=== PATIENT | male | born 1960 | race Caucasian/White ===

== ENCOUNTER 2020-07-31 22:18 | Observation (INO) | payer BC ==
[2020-07-31] MEDS ORDERED: Sodium Chloride 0.9% 10 ML Syringe FLUSH PRN (22:26)
[2020-07-31] MEDS ORDERED: Morphine 4 MG/ML VIAL IVPUSH ONE (22:27)
[2020-07-31] MEDS ORDERED: Ondansetron 4 MG/2 ML SDV IVPUSH ONE (22:27)
[2020-07-31] MEDS ORDERED: Sodium Chloride 0.9% 1,000 ML IV SCH (22:30)
[2020-07-31] MEDS ORDERED: Ondansetron 4 MG Tab.DIS PO ONE (22:43)
[2020-07-31] MEDS ORDERED: Alum Hydroxide/Mag Hydroxide 15 ML, Lidocaine 2% 15 ML PO ONE ×2 (22:43)
[2020-07-31] MEDS ORDERED: Iopamidol 755 Mg/ML 100 ML Bottle IV ONE (23:20)
--- NOTE | 2020-07-31 23:21 | EDM.PDOC ---
ED HPI GENERAL MEDICAL PROBLEM - General Chief Complaint: Abdominal Pain Stated Complaint: ABDOMINAL PAIN Time Seen by Provider: 07/31/20 23:00 Source of Information: Reports: Patient History Limitations: Reports: No Limitations - History of Present Illness INITIAL COMMENTS - FREE TEXT/NARRATIVE: Patient presented to the ED because of abdominal pain which started at about 1500. The pain is sharp and squeezing over the LUQ and epigastric area. There is associated nausea but no vomiting, no diarrhea or constipation. He denies having any cough/cold, fever/chills. Left Upper Abdomen Pain Score (Numeric/FACES): 8 Lower Abdomen Pain Score (Numeric/FACES): 1 - Related Data Allergies Allergy/AdvReac Type Severity Reaction Status Date / Time No Known Allergies Allergy Verified 08/01/20 00:21 Home Meds: Home Meds Acetaminophen/Codeine [Tylenol with Codeine No.3 300MG/30MG] 1 - 2 tab PO Q4H PRN #12 tab 08/02/20 [Rx] Metoclopramide [Reglan] 5 mg PO TIDAC PRN #21 tablet 08/02/20 [Rx] Pantoprazole [ProTONIX] 40 mg PO 0600 #30 tab.cr 08/02/20 [Rx] ED ROS GENERAL - Review of Systems Review Of Systems: See Below Constitutional: Reports: No Symptoms HEENT: Reports: No Symptoms Respiratory: Reports: No Symptoms Cardiovascular: Reports: No Symptoms Endocrine: Reports: No Symptoms GI/Abdominal: Reports: Abdominal Pain, Nausea. Denies: Vomiting : Reports: No Symptoms Musculoskeletal: Reports: No Symptoms Skin: Reports: No Symptoms Neurological: Reports: No Symptoms Psychiatric: Reports: No Symptoms ED EXAM, GI/ABD - Physical Exam Exam: See Below Exam Limited By: No Limitations General Appearance: Alert, No Apparent Distress Ears: Normal External Exam, Normal Canal Nose: Normal Inspection, Normal Mucosa Throat/Mouth: Normal Inspection, Normal Lips, Normal Teeth Head: Atraumatic, Normocephalic Neck: Normal Inspection, Supple, Non-Tender, Full Range of Motion Respiratory/Chest: No Respiratory Distress, Lungs Clear, Normal Breath Sounds Cardiovascular: Normal Peripheral Pulses, Regular Rate, Rhythm, No Edema, No Gallop GI/Abdominal Exam: Normal Bowel Sounds, No Organomegaly, No Distention, Other (tenderness over the epigastric area and LUQ) Back Exam: Normal Inspection, Full Range of Motion Extremities: Normal Inspection Neurological: Alert, Oriented, CN II-XII Intact, Normal Cognition Psychiatric: Normal Affect, Normal Mood Skin Exam: Warm, Dry Course - Vital Signs Text/Narrative:: Labs/CXR/CT-abd/pelvis result was discussed with patient NS 1 L bolus Zofran 4 mg IV Morphine 4 mg IV x1 GI cocktail Zofran ODT 4 mg Zosyn 4.5 GM IV x1 Vancomycin 1.5 gm IV x1 Last Recorded V/S: Last Vital Signs Temp 36.6 C 08/02/20 11:35 Pulse 96 08/02/20 16:00 Resp 16 08/02/20 16:00 BP 117/78 08/02/20 16:00 Pulse Ox 96 08/02/20 16:00 - Orders/Labs/Meds Labs: Laboratory Tests 07/31/20 07/31/20 07/31/20 Range/Units 22:37 22:37 22:37 WBC 20.9 H (4.5-12.0) X10-3/uL RBC 2.59 L (4.30-5.75) x10(6)uL Hgb 9.5 L (13.5-17.8) g/dL Hct 28.1 L (30.0-51.3) % MCV 108.5 H (80-96) fL MCH 36.5 H (27.7-33.6) pg MCHC 33.7 (32.2-35.4) g/dL RDW 18.7 H (11.5-15.5) % Plt Count 342 (125-369) X10(3)uL MPV 8.3 (7.4-10.4) fL Add Manual Diff Yes Neutrophils % (Manual) 80 (46-82) % Band Neutrophils % 4 (0-6) % Lymphocytes % (Manual) 12 L (13-37) % Monocytes % (Manual) 4 (4-12) % Sodium 138 (135-145) mmol/L Potassium 3.7 (3.5-5.3) mmol/L Chloride 100 (100-110) mmol/L Carbon Dioxide 23 (21-32) mmol/L BUN 17 (7-18) mg/dL Creatinine 1.2 (0.70-1.30) mg/dL Est Cr Clr Drug Dosing TNP Estimated GFR (MDRD) > 60 (>60) BUN/Creatinine Ratio 14.2 (9-20) Glucose 220 H (80-116) mg/dL Hemoglobin A1c (<5.7) % Lactic Acid (0.4-2.0) mmol/L Calcium 9.3 (8.6-10.2) mg/dL Total Bilirubin 0.5 (0.1-1.3) mg/dL AST 12 (5-25) IU/L ALT 23 (12-36) U/L Alkaline Phosphatase 45 L (56-112) IU/L Troponin I (4.0-60.3) pg/mL Total Protein 7.7 (6.0-8.0) g/dL Albumin 4.1 (3.5-5.2) g/dL Globulin 3.6 g/dL Albumin/Globulin Ratio 1.1 Triglycerides (15-150) mg/dL Cholesterol (50-200) mg/dL LDL Cholesterol Direct (60-130) mg/dL HDL Cholesterol (40-75) mg/dL Cholesterol/HDL Ratio (0-5) Amylase 26 (25-115) U/L Lipase 42 L (73-393) U/L Urine Color (YELLOW) Urine Appearance (CLEAR) Urine pH (5.0-6.5) Ur Specific [place] (1.010-1.025) Urine Protein (NEGATIVE) mg/dL Urine Glucose (UA) (NORMAL) mg/dL Urine Ketones (NEGATIVE) mg/dL Urine Occult Blood (NEGATIVE) Urine Nitrite (NEGATIVE) Urine Bilirubin (NEGATIVE) Urine Urobilinogen (NEGATIVE) mg/dL Ur Leukocyte Esterase (NEGATIVE) Urine RBC (0-5) Urine WBC (0-5) Ur Squamous Epith Cells (NS,R,O) Urine Bacteria (NS) 07/31/20 07/31/20 08/01/20 Range/Units 22:37 23:27 01:35 WBC (4.5-12.0) X10-3/uL RBC (4.30-5.75) x10(6)uL Hgb (13.5-17.8) g/dL Hct (30.0-51.3) % MCV (80-96) fL MCH (27.7-33.6) pg MCHC (32.2-35.4) g/dL RDW (11.5-15.5) % Plt Count (125-369) X10(3)uL MPV (7.4-10.4) fL Add Manual Diff Neutrophils % (Manual) (46-82) % Band Neutrophils % (0-6) % Lymphocytes % (Manual) (13-37) % Monocytes % (Manual) (4-12) % Sodium (135-145) mmol/L Potassium (3.5-5.3) mmol/L Chloride (100-110) mmol/L Carbon Dioxide (21-32) mmol/L BUN (7-18) mg/dL Creatinine (0.70-1.30) mg/dL Est Cr Clr Drug Dosing Estimated GFR (MDRD) (>60) BUN/Creatinine Ratio (9-20) Glucose (80-116) mg/dL Hemoglobin A1c (<5.7) % Lactic Acid 4.2 H* 3.2 H* (0.4-2.0) mmol/L Calcium (8.6-10.2) mg/dL Total Bilirubin (0.1-1.3) mg/dL AST (5-25) IU/L ALT (12-36) U/L Alkaline Phosphatase (56-112) IU/L Troponin I (4.0-60.3) pg/mL Total Protein (6.0-8.0) g/dL Albumin (3.5-5.2) g/dL Globulin g/dL Albumin/Globulin Ratio Triglycerides (15-150) mg/dL Cholesterol (50-200) mg/dL LDL Cholesterol Direct (60-130) mg/dL HDL Cholesterol (40-75) mg/dL Cholesterol/HDL Ratio (0-5) Amylase (25-115) U/L Lipase (73-393) U/L Urine Color Yellow (YELLOW) Urine Appearance Slightly cloudy (CLEAR) Urine pH 5.0 (5.0-6.5) Ur Specific [place] 1.030 H (1.010-1.025) Urine Protein Negative (NEGATIVE) mg/dL Urine Glucose (UA) >1000 H (NORMAL) mg/dL Urine Ketones Negative (NEGATIVE) mg/dL Urine Occult Blood Large H (NEGATIVE) Urine Nitrite Negative (NEGATIVE) Urine Bilirubin Negative (NEGATIVE) Urine Urobilinogen Normal (NEGATIVE) mg/dL Ur Leukocyte Esterase Negative (NEGATIVE) Urine RBC 5-10 H (0-5) Urine WBC 0-5 (0-5) Ur Squamous Epith Cells Occasional (NS,R,O) Urine Bacteria Few H (NS) 08/01/20 08/01/20 08/01/20 Range/Units 01:35 01:35 01:35 WBC 15.2 H (4.5-12.0) X10-3/uL RBC 2.54 L (4.30-5.75) x10(6)uL Hgb 9.2 L (13.5-17.8) g/dL Hct 27.8 L (30.0-51.3) % MCV 109.6 H (80-96) fL MCH 36.1 H (27.7-33.6) pg MCHC 32.9 (32.2-35.4) g/dL RDW 19.3 H (11.5-15.5) % Plt Count 318 (125-369) X10(3)uL MPV 8.3 (7.4-10.4) fL Add Manual Diff Yes Neutrophils % (Manual) 84 H (46-82) % Band Neutrophils % 3 (0-6) % Lymphocytes % (Manual) 9 L (13-37) % Monocytes % (Manual) 4 (4-12) % Sodium (135-145) mmol/L Potassium (3.5-5.3) mmol/L Chloride (100-110) mmol/L Carbon Dioxide (21-32) mmol/L BUN (7-18) mg/dL Creatinine (0.70-1.30) mg/dL Est Cr Clr Drug Dosing Estimated GFR (MDRD) (>60) BUN/Creatinine Ratio (9-20) Glucose (80-116) mg/dL Hemoglobin A1c (<5.7) % Lactic Acid (0.4-2.0) mmol/L Calcium (8.6-10.2) mg/dL Total Bilirubin (0.1-1.3) mg/dL AST (5-25) IU/L ALT (12-36) U/L Alkaline Phosphatase (56-112) IU/L Troponin I (4.0-60.3) pg/mL Total Protein (6.0-8.0) g/dL Albumin (3.5-5.2) g/dL Globulin g/dL Albumin/Globulin Ratio Triglycerides 76 (15-150) mg/dL Cholesterol 179 (50-200) mg/dL LDL Cholesterol Direct 112 (60-130) mg/dL HDL Cholesterol 39 L (40-75) mg/dL Cholesterol/HDL Ratio 4.6 (0-5) Amylase (25-115) U/L Lipase 41 L (73-393) U/L Urine Color (YELLOW) Urine Appearance (CLEAR) Urine pH (5.0-6.5) Ur Specific [place] (1.010-1.025) Urine Protein (NEGATIVE) mg/dL Urine Glucose (UA) (NORMAL) mg/dL Urine Ketones (NEGATIVE) mg/dL Urine Occult Blood (NEGATIVE) Urine Nitrite (NEGATIVE) Urine Bilirubin (NEGATIVE) Urine Urobilinogen (NEGATIVE) mg/dL Ur Leukocyte Esterase (NEGATIVE) Urine RBC (0-5) Urine WBC (0-5) Ur Squamous Epith Cells (NS,R,O) Urine Bacteria (NS) 08/01/20 08/01/20 Range/Units 01:35 01:35 WBC (4.5-12.0) X10-3/uL RBC (4.30-5.75) x10(6)uL Hgb (13.5-17.8) g/dL Hct (30.0-51.3) % MCV (80-96) fL MCH (27.7-33.6) pg MCHC (32.2-35.4) g/dL RDW (11.5-15.5) % Plt Count (125-369) X10(3)uL MPV (7.4-10.4) fL Add Manual Diff Neutrophils % (Manual) (46-82) % Band Neutrophils % (0-6) % Lymphocytes % (Manual) (13-37) % Monocytes % (Manual) (4-12) % Sodium (135-145) mmol/L Potassium (3.5-5.3) mmol/L Chloride (100-110) mmol/L Carbon Dioxide (21-32) mmol/L BUN (7-18) mg/dL Creatinine (0.70-1.30) mg/dL Est Cr Clr Drug Dosing Estimated GFR (MDRD) (>60) BUN/Creatinine Ratio (9-20) Glucose (80-116) mg/dL Hemoglobin A1c 5.5 (<5.7) % Lactic Acid (0.4-2.0) mmol/L Calcium (8.6-10.2) mg/dL Total Bilirubin (0.1-1.3) mg/dL AST (5-25) IU/L ALT (12-36) U/L Alkaline Phosphatase (56-112) IU/L Troponin I 16.3 (4.0-60.3) pg/mL Total Protein (6.0-8.0) g/dL Albumin (3.5-5.2) g/dL Globulin g/dL Albumin/Globulin Ratio Triglycerides (15-150) mg/dL Cholesterol (50-200) mg/dL LDL Cholesterol Direct (60-130) mg/dL HDL Cholesterol (40-75) mg/dL Cholesterol/HDL Ratio (0-5) Amylase (25-115) U/L Lipase (73-393) U/L Urine Color (YELLOW) Urine Appearance (CLEAR) Urine pH (5.0-6.5) Ur Specific [place] (1.010-1.025) Urine Protein (NEGATIVE) mg/dL Urine Glucose (UA) (NORMAL) mg/dL Urine Ketones (NEGATIVE) mg/dL Urine Occult Blood (NEGATIVE) Urine Nitrite (NEGATIVE) Urine Bilirubin (NEGATIVE) Urine Urobilinogen (NEGATIVE) mg/dL Ur Leukocyte Esterase (NEGATIVE) Urine RBC (0-5) Urine WBC (0-5) Ur Squamous Epith Cells (NS,R,O) Urine Bacteria (NS) Meds: Medications Discontinued Medications Generic Name Dose Route Start Last Admin Trade Name Freq PRN Reason Stop Dose Admin Acetaminophen 650 mg 08/01/20 03:04 08/01/20 18:23 Tylenol PO 650 mg Q4H PRN Administration Pain (Mild 1-3)/fever Al Hydroxide/Mg Hydroxide 15 0 ml 07/31/20 22:43 07/31/20 22:51 ml/ Lidocaine HCl 15 ml PO 07/31/20 22:44 15 ml ONETIME ONE Administration Enoxaparin Sodium 40 mg 08/01/20 03:15 08/01/20 06:18 Lovenox SUBCUT 40 mg Q24H HALIMA Administration Enoxaparin Sodium 40 mg 08/02/20 08:00 Lovenox SUBCUT Q24H HALIMA Famotidine 20 mg 08/01/20 21:00 08/02/20 10:28 Pepcid PO Not Given BID HALIMA Hydromorphone HCl 1 mg 08/01/20 01:29 08/01/20 01:40 Dilaudid IVPUSH 08/01/20 01:30 1 mg ONETIME ONE Administration Hydromorphone HCl 1 mg 08/01/20 03:16 08/01/20 10:17 Dilaudid IVPUSH 1 mg Q2H PRN Administration Pain Hydromorphone HCl 2 mg 08/01/20 19:02 08/01/20 19:15 Dilaudid IVPUSH 08/01/20 19:03 2 mg ONETIME ONE Administration Sodium Chloride 1,000 mls @ 999 mls/hr 07/31/20 22:30 07/31/20 23:15 Normal Saline IV 999 mls/hr ASDIRECTED HALIMA Administration Sodium Chloride 1,000 mls @ 999 mls/hr 08/01/20 01:30 08/01/20 01:33 Normal Saline IV 999 mls/hr ASDIRECTED HALIMA Administration Piperacillin Sod/Tazobactam 100 mls @ 200 mls/hr 08/01/20 02:30 08/01/20 02:35 Sod 4.5 gm/ Sodium Chloride IV 200 mls/hr Q8H HALIMA Administration Vancomycin HCl 1,500 gm/ 250 mls @ 167 mls/hr 08/01/20 03:00 Sodium Chloride IV Q12H HALIMA Vancomycin HCl 1 gm/ 250 mls @ 150 mls/hr 08/01/20 03:00 08/01/20 03:18 Vancomycin HCl 500 mg/ Sodium IV 150 mls/hr Chloride Q12H HALIMA Administration Sodium Chloride 1,000 mls @ 125 mls/hr 08/01/20 03:00 08/01/20 03:10 Normal Saline IV 125 mls/hr ASDIRECTED HALIMA Administration Iopamidol 100 ml 07/31/20 23:20 07/31/20 23:44 Isovue-370 (76%) IV 07/31/20 23:21 100 ml . DIRECTED ONE Administration Ketorolac Tromethamine 30 mg 08/01/20 01:29 08/01/20 01:36 Toradol IVPUSH 08/01/20 01:30 30 mg ONETIME ONE Administration Metoclopramide HCl 5 mg 08/02/20 11:30 08/02/20 11:06 Reglan PO 5 mg TIDAC HALIMA Administration Morphine Sulfate 4 mg 07/31/20 22:27 07/31/20 23:19 Morphine IVPUSH 07/31/20 22:28 4 mg ONETIME ONE Administration Ondansetron HCl 4 mg 07/31/20 22:27 07/31/20 23:24 Zofran IVPUSH 07/31/20 22:28 4 mg ONETIME ONE Administration Ondansetron HCl 4 mg 07/31/20 22:43 07/31/20 22:47 Zofran Odt PO 07/31/20 22:44 4 mg ONETIME ONE Administration Ondansetron HCl 4 mg 08/01/20 03:13 08/01/20 16:37 Zofran IVPUSH 4 mg Q4H PRN Administration Nausea/Vomiting Pantoprazole Sodium 40 mg 08/01/20 07:48 08/01/20 08:17 Protonix Iv IVPUSH 08/01/20 07:49 40 mg ONETIME ONE Administration Pantoprazole Sodium 40 mg 08/02/20 11:30 08/02/20 11:06 Protonix PO 40 mg 0600 HALIMA Administration Propofol 300 mg 08/01/20 03:17 Diprivan 20 Ml IV 08/01/20 03:18 .STK-MED ONE Senna/Docusate Sodium 1 tab 08/01/20 03:12 Senna Plus PO BID PRN Constipation Sodium Chloride 10 ml 07/31/20 22:26 08/01/20 16:38 Saline Flush FLUSH 10 ml ASDIRECTED PRN Administration Keep Vein Open Departure - Departure Time of Disposition: 05:00 Disposition: Refer to Observation Condition: Good Clinical Impression: Sepsis Abdominal pain Qualifiers: Abdominal location: epigastric Qualified Code(s): R10.13 - Epigastric pain - Discharge Information
[2020-08-01] MEDS ORDERED: Ketorolac 30 MG/ML SDV IVPUSH ONE (01:29)
[2020-08-01] MEDS ORDERED: HYDROmorphone 2 MG/ML SDV IVPUSH ONE ×2 (01:29→19:02)
[2020-08-01] MEDS ORDERED: Sodium Chloride 0.9% 1,000 ML IV SCH ×2 (01:30→03:00)
[2020-08-01 02:01] LABS: HEMOGLOBIN A1C 5.5 % (<5.7)
[2020-08-01] MEDS ORDERED: Piperacillin/Tazobactam 4.5 GM in Sodium Chloride 0.9% 100 ML IV SCH (02:30)
[2020-08-01] MEDS ORDERED: Vancomycin 1 GM, Vancomycin 500 MG in Sodium Chloride 0.9% 250 ML IV SCH (03:00)
[2020-08-01] MEDS ORDERED: Vancomycin 1,500 GM in Sodium Chloride 0.9% 250 ML IV SCH (03:00)
[2020-08-01] MEDS ORDERED: Acetaminophen 325 MG Tab PO PRN (03:04)
[2020-08-01] MEDS ORDERED: Ondansetron 4 MG/2 ML SDV IVPUSH PRN (03:13)
[2020-08-01] MEDS ORDERED: Enoxaparin 40 MG/0.4 ML Syringe SUBCUT SCH (03:15)
[2020-08-01] MEDS ORDERED: Propofol 200 MG/20 ML SDV IV ONE (03:17)
[2020-08-01] MEDS ORDERED: Pantoprazole 40 MG Vial IVPUSH ONE (07:48)
[2020-08-01] MEDS: HYDROmorphone 2 MG/ML SDV IVPUSH PRN ×2 (08:10→10:17)
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
[2020-08-01] MEDS: Famotidine 20 MG Tab PO SCH (21:13)
--- NOTE | 2020-08-02 07:38 | PCM.CONS ---
H&P History of Present Illness - General Date of Service: 08/02/20 Admit Problem/Dx: Admission Diagnosis/Problem Admission Diagnosis/Problem Abdominal pain Source of Information: Patient - History of Present Illness Initial Comments - Free Text/Narative: Pt was admitted with a sudden onset of epigastric abd pain on Thursday. Notably also had an elevation in his lactic acid as well. This did resolve. He did continue to have epigastric abd pain. It is severe enough to affect ambulation. no aggravating or relieving factors. Was to go home last pm but did have another flair up. he denies any black or bloody bowel movements or emesis. Has never had an egd. Left Upper Abdomen Pain Score (Numeric/FACES): 8 Lower Abdomen Pain Score (Numeric/FACES): 1 - Related Data Allergies/Adverse Reactions: Allergies Allergy/AdvReac Type Severity Reaction Status Date / Time No Known Allergies Allergy Verified 08/01/20 00:21 Home Medications: Home Meds NK [No Known Home Meds] 08/01/20 [History] Past Medical History HEENT History: Reports: None Cardiovascular History: Reports: Other (See Below) Other Cardiovascular History: tavares has high BP. No hx of Respiratory History: Reports: None Gastrointestinal History: Reports: None Genitourinary History: Reports: None Musculoskeletal History: Reports: Other (See Below) Other Musculoskeletal History: History of broken collar bone. With surgery Neurological History: Reports: None Psychiatric History: Reports: Addiction Endocrine/Metabolic History: Reports: Obesity/BMI 30+ Hematologic History: Reports: None Oncologic (Cancer) History: Reports: Basal Cell Carcinoma, Other (See Below) Other Oncologic History: nose Dermatologic History: Reports: None - Infectious Disease History Infectious Disease History: Reports: Chicken Pox, Mumps - Past Surgical History HEENT Surgical History: Reports: None Cardiovascular Surgical History: Reports: None Respiratory Surgical History: Reports: None GI Surgical History: Reports: None Male Surgical History: Reports: None Endocrine Surgical History: Reports: None Neurological Surgical History: Reports: None Musculoskeletal Surgical History: Reports: Other (See Below) Other Musculoskeletal Surgeries/Procedures:: see above Oncologic Surgical History: Reports: None Dermatological Surgical History: Reports: Skin Biopsy, Other (See Below) Social & Family History - Family History Family Medical History: Unobtainable - Tobacco Use Smoking Status *Q: Current Every Day Smoker Years of Tobacco use: 35 Packs/Tins Daily: 1 - Caffeine Use Caffeine Use: Reports: Coffee, Tea - Alcohol Use Days Per Week of Alcohol Use: 2 Number of Drinks Per Day: 5 Total Drinks Per Week: 10 Date of Last Drink: 07/29/20 Time of Last Drink: 14:00 - Recreational Drug Use Recreational Drug Use: No H&P Review of Systems - Review of Systems: Review Of Systems: See Below General: Reports: No Symptoms Pulmonary: Reports: No Symptoms Cardiovascular: Reports: No Symptoms Gastrointestinal: Reports: Abdominal Pain, Flatus. Denies: Black Stool, Bloody Stool Musculoskeletal: Reports: No Symptoms Exam - Exam Exam: See Below - Vital Signs Vital Signs: Last Vital Signs Temp 98.8 F 08/02/20 00:00 Pulse 70 08/02/20 00:00 Resp 16 08/02/20 00:00 BP 158/83 H 08/02/20 00:00 Pulse Ox 94 L 08/02/20 00:00 Weight: 95.753 kg - Exam General: Alert, Oriented Lungs: Clear to Auscultation, Normal Respiratory Effort Cardiovascular: Regular Rate, Regular Rhythm GI/Abdominal Exam: Normal Bowel Sounds, Soft, Non-Tender - Patient Data Lab Results Last 24 hrs: Laboratory Results - last 24 hr 08/01/20 08/02/20 08/02/20 Range/Units 05:45 06:30 06:30 WBC 16.3 H (4.5-12.0) X10-3/uL RBC 2.71 L (4.30-5.75) x10(6)uL Hgb 9.9 L (13.5-17.8) g/dL Hct 29.5 L (30.0-51.3) % MCV 109.1 H (80-96) fL MCH 36.4 H (27.7-33.6) pg MCHC 33.4 (32.2-35.4) g/dL RDW 18.8 H (11.5-15.5) % Plt Count 280 (125-369) X10(3)uL MPV 8.1 (7.4-10.4) fL Add Manual Diff Yes Neutrophils % (Manual) 87 H (46-82) % Band Neutrophils % 2 (0-6) % Lymphocytes % (Manual) 7 L (13-37) % Monocytes % (Manual) 4 (4-12) % Sodium 137 (135-145) mmol/L Potassium 4.2 (3.5-5.3) mmol/L Chloride 100 (100-110) mmol/L Carbon Dioxide 29 (21-32) mmol/L BUN 7 D (7-18) mg/dL Creatinine 0.9 (0.70-1.30) mg/dL Est Cr Clr Drug Dosing 93.50 mL/min Estimated GFR (MDRD) > 60 (>60) BUN/Creatinine Ratio 7.8 L (9-20) Glucose 116 D (80-116) mg/dL Calcium 9.5 (8.6-10.2) mg/dL Total Bilirubin 0.8 (0.1-1.3) mg/dL AST 17 D (5-25) IU/L ALT 20 D (12-36) U/L Alkaline Phosphatase 50 L (56-112) IU/L C-Reactive Protein (0.5-0.9) mg/dL Total Protein 7.7 (6.0-8.0) g/dL Albumin 4.1 (3.5-5.2) g/dL Globulin 3.6 g/dL Albumin/Globulin Ratio 1.1 Amylase (25-115) U/L Lipase (73-393) U/L Vitamin B12 987 H (193-986) pg/mL 08/02/20 08/02/20 08/02/20 Range/Units 06:30 06:30 06:30 WBC (4.5-12.0) X10-3/uL RBC (4.30-5.75) x10(6)uL Hgb (13.5-17.8) g/dL Hct (30.0-51.3) % MCV (80-96) fL MCH (27.7-33.6) pg MCHC (32.2-35.4) g/dL RDW (11.5-15.5) % Plt Count (125-369) X10(3)uL MPV (7.4-10.4) fL Add Manual Diff Neutrophils % (Manual) (46-82) % Band Neutrophils % (0-6) % Lymphocytes % (Manual) (13-37) % Monocytes % (Manual) (4-12) % Sodium (135-145) mmol/L Potassium (3.5-5.3) mmol/L Chloride (100-110) mmol/L Carbon Dioxide (21-32) mmol/L BUN (7-18) mg/dL Creatinine (0.70-1.30) mg/dL Est Cr Clr Drug Dosing mL/min Estimated GFR (MDRD) (>60) BUN/Creatinine Ratio (9-20) Glucose (80-116) mg/dL Calcium (8.6-10.2) mg/dL Total Bilirubin (0.1-1.3) mg/dL AST (5-25) IU/L ALT (12-36) U/L Alkaline Phosphatase (56-112) IU/L C-Reactive Protein 2.8 H* (0.5-0.9) mg/dL Total Protein (6.0-8.0) g/dL Albumin (3.5-5.2) g/dL Globulin g/dL Albumin/Globulin Ratio Amylase 21 L (25-115) U/L Lipase 32 L (73-393) U/L Vitamin B12 (193-986) pg/mL Result Diagrams: 08/02/20 06:30 08/02/20 06:30 Roney Results Last 24 hrs: Microbiology 07/31/20 23:37 Urine Culture - Preliminary Urine, Voided NO GROWTH AFTER 1 DAY 08/01/20 00:10 Aerobic Blood Culture - Preliminary Blood - Venous NO GROWTH AFTER 1 DAY Anaerobic Blood Culture - Preliminary NO GROWTH AFTER 1 DAY 08/01/20 00:15 Aerobic Blood Culture - Preliminary Blood - Venous - Lab Draw NO GROWTH AFTER 1 DAY Anaerobic Blood Culture - Preliminary NO GROWTH AFTER 1 DAY Sepsis Event Note - Evaluation Sepsis Screening Result: No Definite Risk - Focused Exam Vital Signs: Vital Signs Temp Pulse Resp BP Pulse Ox 08/02/20 00:00 98.8 F 70 16 158/83 H 94 L Consult PN Assessment/Plan (1) Abdominal pain SNOMED Code(s): 62060615 Code(s): R10.9 - UNSPECIFIED ABDOMINAL PAIN Current Visit: Yes Qualifiers: Abdominal location: epigastric Qualified Code(s): R10.13 - Epigastric pain Problem List Initiated/Reviewed/Updated: Yes My Orders Last 24 Hours: My Active Orders 08/02/20 Breakfast Nothing per Oral After Midnight Diet [DIET] 08/02/20 07:33 Verify Patient Consent Obtain [RC] ASDIRECTED CORONAVIRUS COVID-19 PCR PHL Urgent Plan: recommending an egd this am. Procedure and risks explained to the pt to include bleeding, infection perforation. expressed understanding and asks us to proceed. will obtain a covid test as well prior.
[2020-08-02] MEDS ORDERED: Enoxaparin 40 MG/0.4 ML Syringe SUBCUT SCH (08:00)
[2020-08-02 08:15] LABS: IRON BIND.CAP.(TIBC) 285 ug/dL (250-450); IRON SATURATION 36 % (15-55); IRON, SERUM 104 ug/dL (38-169); UIBC 181 ug/dL (111-343)
--- NOTE | 2020-08-02 10:18 | PCM.OPNOTE ---
- General Post-Op/Procedure Note Date of Surgery/Procedure: 08/02/20 Operative Procedure(s): egd with biopsy Findings: gastroduodenitis retained food Pre Op Diagnosis: epistastric abd pain Post-Op Diagnosis: gastroduodenitis. retained food Anesthesia Technique: [facility] [place] Primary Surgeon: Narciso Vora Anesthesia Provider: John Patel Pathology: stomach and duodenum Complications: None Condition: Good Free Text/Narrative:: see dictation [id number]
[2020-08-02] MEDS: Famotidine 20 MG Tab PO SCH (10:28)
[2020-08-02] MEDS ORDERED: Metoclopramide 5 MG Tab PO SCH (11:30)
[2020-08-02] MEDS ORDERED: Pantoprazole 40 MG Tab.CR PO SCH (11:30)
--- NOTE | 2020-08-02 13:01 | OR ---
DATE OF OPERATION: 08/02/2020 SURGEON: Narciso Vora MD PROCEDURE PERFORMED: Esophagogastroduodenoscopy with cold forceps biopsy. PREOPERATIVE DIAGNOSIS: History of epigastric abdominal pain. POSTOPERATIVE DIAGNOSIS: Retained food and mild gastroduodenitis. INDICATIONS FOR PROCEDURE: This is a 59-year-old white male who was admitted on Thursday with a history of epigastric abdominal pain that has required some Dilaudid, interestingly enough. He also had a history of lactic acidosis, which has spontaneously resolved. He was offered and accepted an EGD as part of a workup for determining his abdominal pain. DESCRIPTION OF OPERATION: After an excellent IV sedation was administered, the bite block was inserted. Flexible endoscope was passed without difficulty down the patient's esophagus into the stomach. Stomach was insufflated. Scope passed through the pylorus, second portion of duodenum and then slowly withdrawn. Following findings were noted: First portion of the duodenum demonstrated some marked duodenitis. Multiple biopsies were taken. I did not delineate any evidence of an ulceration. Stomach along the greater curve, there was some retained food, which is interesting, as the patient's last meal was at 1800 hours yesterday, and he has been n.p.o. since midnight. This retained food precluded a complete evaluation of the body of the patient's stomach. However, what we were able to delineate was some mild erythema, especially in the area of the antrum. Biopsies were taken of this area as well. The GE junction measured approximately 40 cm, and the esophagus itself was unremarkable. The stomach was deflated and the scope was removed. The patient tolerated the procedure well and was taken to Recovery. /[id number] /MODL
--- NOTE | 2020-08-03 10:25 | DISCH ---
DISCHARGE DATE: 08/02/2020 PRIMARY FINAL DIAGNOSIS: Epigastric abdominal pain secondary to acute gastritis. OPERATION: Esophagogastroduodenoscopy. COMPLICATIONS: None. SUMMARY: Jerel is a 59-year-old man who was admitted with severe epigastric pain. This was relieved with IV hydromorphone. Admission laboratory also revealed a significant macrocytic anemia with a hemoglobin of 9.2 and MCV of 109. Moderate hematuria and normal iron levels. He underwent EGD by Dr. Vora and was found to have inflammatory gastric changes. Biopsies were done and are pending. He is discharged to home in improved condition to continue: 1. Protonix 40 mg daily. 2. Reglan 5 mg t.i.d. p.r.n. 3. Tylenol with Codeine 1 to 2 every 4 hours p.r.n. pain. He is to have followup appointments with Dr. Maria at [facility] for hematuria, with Dr. Albert at [facility] for macrocytic anemia, with Dr. Vora for followup of his EGD, and I recommend that he have a heart screen in [place] at [place] as well. /[id number] RO/MODL
[2020-08-06 18:08] LABS: A/G RATIO 1.4 (0.7-1.7); ALBUMIN 4.1 g/dL (2.9-4.4); ALPHA-1-GLOBULIN 0.3 g/dL (0.0-0.4); ALPHA-2-GLOBULIN 0.9 g/dL (0.4-1.0); GAMMA GLOBULIN 0.8 g/dL (0.4-1.8); M-SPIKE Not Observed g/dL (Not Observed); PROTEIN, TOTAL, SERUM 7.1 g/dL (6.0-8.5)
== END 2020-08-02 16:22 | disposition home or self-care (01) ==
LOC: FB.ED 22:18 → FB.MS 08-01 03:16
PROVIDERS: ADMIT Emergency Medicine; ATTEND Family Medicine
DX: K29.30 Chronic superficial gastritis without bleeding (principal); K29.80 Duodenitis without bleeding; D53.9 Nutritional anemia, unspecified; F17.210 Nicotine dependence, cigarettes, uncomplicated; E66.9 Obesity, unspecified; Z01.812 Encounter for preprocedural laboratory examination; Z20.828 Contact with and (suspected) exposure to other viral communicable diseases; Z68.30 Body mass index [BMI] 30.0-30.9, adult
CPT/HCPCS: 36415; 43239; 71045; 74176; 74177; 80053; 80061; 81001; 82150; 82607; 82728; 82746; 83036; 83540; 83550; 83605; 83690; 84165; 84484; 85025; 85045; 86140; 87040; 87086; 87635; 88305; 88342; 93005; 96361; 96365; 96367; 96372; 96375; 96376; 99285; A9270; C9113; G0378; J1170; J1650; J1885; J2270; J2405; J2543; J2704; J3370; J7030; J7050; Q9967; 00731-QZ; 99217; 99219; 99284; U0002